=== PATIENT | female | born 1975 | race Caucasian/White ===

== ENCOUNTER → 2016-09-26 | Outpatient (CLI) | payer BC | LOC: MOB LAB 09-25 16:59 | PROVIDERS: ATTEND Nurse Practitioner Family | DX: E55.9 Vitamin D deficiency, unspecified (principal); R63.5 Abnormal weight gain; C50.412 Malignant neoplasm of upper-outer quadrant of left female breast | CPT/HCPCS: 36415; 82306; 82378; 84443 ==

== ENCOUNTER → 2016-10-27 | Outpatient (CLI) | payer BC ==
--- NOTE | 2016-10-27 11:34 | EKG ---
[address] [address] Measurements Intervals [place] Rate: 56 P: 43 SD: 179 QRS: 61 QRSD: 94 T: 58 QT: 449 QTc: 441 Interpretive Statements SINUS RHYTHM No previous ECG available for comparison Electronically Signed On 10-30-16 07:54:48 MDT by Yonatan Ureña MD [email or web address]
[2016-10-27 12:24] LABS: BLOOD UREA NITROGEN 16 mg/dL (7-22); CALCIUM 9.1 mg/dL (8.7-10.7); EST GLOMERULAR FILTRATION > 60 (>60 ml/min/1.73m(2)); SERUM ALBUMIN 4.3 g/dL (3.5-4.8)
== END ==
LOC: MOB LAB 11:26
PROVIDERS: ATTEND Nurse Practitioner Family
DX: R10.11 Right upper quadrant pain (principal); R60.0 Localized edema; R53.83 Other fatigue; C50.412 Malignant neoplasm of upper-outer quadrant of left female breast
CPT/HCPCS: 36415; 80053; 86300; 93005; 93010

== ENCOUNTER → 2016-11-01 | Outpatient (CLI) | payer BC ==
--- NOTE | 2016-11-01 11:42 | DI ---
US ABDOMEN LIMITED,11/01/2016 8:30 AM: Clinical History: Right upper quadrant abdominal pain Previous Exam: None at this facility. Findings: Multiple grayscale and color Doppler sonographic images are obtained through the right upper quadrant , and demonstrate a normal-appearing gallbladder. The gallbladder wall measures 2 mm and there is no pericholecystic fluid. Negative sonographic Lee's sign is obtained and there are no stones. The pancreas is normal throughout its visualized portions, but is not well evaluated. The common bile duct measures 3 mm. The right kidney measures 10.6 cm in length without hydronephrosis nor nephrolithiasis. The aorta is within normal limits. Impression: Normal right upper quadrant ultrasound.
== END ==
LOC: US 08:26
PROVIDERS: ATTEND Nurse Practitioner Family
DX: R10.11 Right upper quadrant pain (principal)
CPT/HCPCS: 76705